=== PATIENT | female | born 1935 | race Two or more races ===

== ENCOUNTER → 2018-12-10 | Outpatient (CLI) | payer MEDICARE, OTHER | END | disposition home or self-care (01) | LOC: HKI 11:48 | DX: M25.562 Pain in left knee (principal); E66.01 Morbid (severe) obesity due to excess calories; F32.9 Major depressive disorder, single episode, unspecified; I10 Essential (primary) hypertension; Z96.653 Presence of artificial knee joint, bilateral; Z85.72 Personal history of non-Hodgkin lymphomas | CPT/HCPCS: 73562; 73562-50 ==